=== PATIENT | female | born 1940 | race Caucasian/White ===

== ENCOUNTER → 2019-11-04 | Outpatient (CLI) | payer OTHER, BC | LOC: SJCVC 09:52 → SJCVCIMAG 09:52 | PROVIDERS: ATTEND Internal Medicine Cardiovascular Disease | DX: I65.23 Occlusion and stenosis of bilateral carotid arteries (principal); R94.31 Abnormal electrocardiogram [ECG] [EKG]; I10 Essential (primary) hypertension; E78.00 Pure hypercholesterolemia, unspecified; Z79.899 Other long term (current) drug therapy ==

== ENCOUNTER → 2019-11-24 | Outpatient (CLI) | payer OTHER, BC | LOC: SJCVCIMAG 07:48 | PROVIDERS: ATTEND Internal Medicine Cardiovascular Disease | DX: I08.8 Other rheumatic multiple valve diseases (principal); I11.9 Hypertensive heart disease without heart failure; I25.119 Atherosclerotic heart disease of native coronary artery with unspecified angina pectoris; Z79.899 Other long term (current) drug therapy ==

== ENCOUNTER → 2019-11-30 | Outpatient (CLI) | payer OTHER, BC ==
[~2019-11-30] MED LIST: ASA81BEC PO; B-COMPLEX PLU400 MCG PO; FOLIC ACID1 MG PO; HYDROCHLOROTHIA25 M2 PO; OMEPRAZOLE 20 M20 M1 PO; SIMVASTATIN80 MG PO; TOPROL XL50 MG PO; VITAMIN D32400 UNIT/ PO
== END | disposition home or self-care (01) ==
LOC: SJCVCIMAG 09:59
PROVIDERS: ATTEND Internal Medicine Cardiovascular Disease
DX: R07.9 Chest pain, unspecified (principal); I25.10 Atherosclerotic heart disease of native coronary artery without angina pectoris; I71.4 Abdominal aortic aneurysm, without rupture; I70.1 Atherosclerosis of renal artery; Z98.890 Other specified postprocedural states; Z79.899 Other long term (current) drug therapy; Z79.82 Long term (current) use of aspirin

== ENCOUNTER → 2019-11-30 | Outpatient (CLI) | payer OTHER, BC ==
[~2019-11-30] VITALS: Ht 160 cm; Wt 79.4 kg
[2019-11-30 06:59] VITALS: BP 136/76
[2019-11-30 07:33] LABS: HEMATOCRIT 41.7 % (37.0-47.0); HEMOGLOBIN 14.2 gm/dL (12.0-15.0); RBC 4.44 mil/uL (4.20-5.00); RDW 13.7 % (10.5-14.5); WBC 4.9 thou/uL (4.0-11.0)
[2019-11-30 07:40] LABS: CALCIUM 9.7 mg/dL (8.5-10.1); CREATININE 0.7 mg/dL (0.6-1.0); POTASSIUM 3.7 mmol/L (3.5-5.1)
--- NOTE | 2019-11-30 08:33 | EKG ---
[facility] [place] [address] ELECTROCARDIOGRAM REPORT Name: EFREN ELIAS Room #: REG [facility]#: [id number] Admission: 11/30/19 Attend Phys: Jigar Frances MD, Discharge: Date of : 36 Report #: [id number] THIS REPORT FOR: cc: Klaudia Rodriguez MD, Melissa MD Lundgren,Alexi Brannon MD [facility] ~ THIS REPORT FOR: //name// [facility] Test Date: 2019-11-30 Test Time: 07:48:56 Pat Name: EFREN ELIAS Department: Room: Gender: Manager Graphic: [facility] : 1940 Requested By: Jigar Frances Order Number: [id number] MD: Alexi Velásquez Measurements Intervals [place] Rate: 71 P: 21 NC: 210 QRS: -36 QRSD: 115 T: 137 QT: 382 QTc: 416 Interpretive Statements Sinus rhythm LVH with IVCD, LAD and secondary repol abnrm No previous ECG available for comparison Electronically Signed On 11-30-2019 8:33:22 CDT by Alexi Velásquez [email or web address] <ELECTRONICALLY SIGNED> By: Alexi Velásquez MD, FACC 11/30/19 0833 0748 0748 Alexi Velásquez MD, [facility] /EPI
--- NOTE | 2019-12-01 17:17 | CATHLAB ---
[facility] [address] [employer] [place] [address] INVASIVE PROCEDURE REPORT Name: EFREN ELIAS [id number] Admission: 11/30/19 Attend Phys: Jigar Frances MD, Discharge: Date of : 36 Report #: [id number] THIS REPORT FOR: cc: Klaudia Rodriguez MD, Melissa MD Mancuso, Gerald M. MD [facility] ~ APPROVED REPORT Study performed: 11/30/2019 07:43:23 Patient Details Patient Status: Out-Patient Room #: The patient is a 79 year-old female Event Personnel Jigar Frances Subsea Engineer, Mik Sheets RN, Iva Johnson RN RN, Lisa Delgado RTR Justice Rolon Sherra RTR Monitor Procedures Performed Art Access - R femoral artery* Left Heart Cath w/or w/o Coronaries [id number] [facility] Aortogram Abdominal Peripheral Angio 564038 Renal Bilateral Peripheral Angiography 9610122 CVRENALBIL 34375 Initial Mod Sed Same Phys/QHP Gr5y 586030 74991 Mod Sed Same Phys/QHP Ea 622391 Hemostasis with Manual pressure Indication Chest pain Procedure Narrative The Right Groin^ was infiltrated with 1% Lidocaine subcutaneous anesthesia. A PINNACLE 6FR Sheath #[id number] sheath was inserted into the RFA^. Coronary angiography was performed using coronary diagnostic catheters. The right coronary system was accessed and visualized with a 6FR 3DRC #[id number] catheter. The left coronary system was accessed and visualized with a JL4 catheter. The left ventricle was accessed and visualized with a PIGTAIL catheter. Left ventriculogram was performed in 30 degree projection. An aortogram of the abdominal aorta was performed. Pre-demployment femoral angiogram was performed . Closure device was deployed with a 6 Fr MYNXGRIP 6/7F #[id number]. The patient tolerated the procedure well and there were no complications associated with the procedure. There was no hematoma. [facility] [address] [place] [address] INVASIVE PROCEDURE REPORT Name: EFREN ELIAS Room #: [facility] [id number] Admission: 11/30/19 Attend Phys: Jigar Frances, Discharge: Date of : 36 Report #: [id number] Intraoperative Conscious Sedation Sedation start time: 840 Case end Time: 910 Fentanyl 50 mcg Versed 1 mg Fluoro Time: 5.50 minutes Dose: DAP 8250.80 cGycm2 1014 mGy Contrast Type and Amount: Omnipaque 135 ml Hemodynamics The aortic pressure is 133/61 mmHg with a mean of 28 mmHg. The left ventricular pressure is 137/3 mmHg with a mean of mmHg. The left ventricular end diastolic pressure is 17 mmHg. Conclusion #1. Left main long free of disease giving rise to LAD and circumflex #2 LAD with mild plaquing calcification eccentric proximal lesion 40 to 50% proximal mid and mid vessel. Smaller around the apex but patent #3 circumflex OM nondominant with mild distal disease. Moderate distribution moderate mid vessel calcification. #4 dominant right coronary with mild irregularities no occlusive disease #5 abdominal aortogram revealed small infrarenal aortic aneurysm will correlate with noninvasive studies. #6 selective injection bilateral renal arteries reveals mild ostial disease bilaterally 20 to 30% #7 normal left jugular size and systolic function EF 60% Recommendations and plan: Continue aggressive risk factor modification no indication for coronary intervention. Will obtain abdominal ultrasound to evaluate a small 8 infrarenal aortic aneurysm. <ELECTRONICALLY SIGNED> By: Jigar Frances MD, FACC 12/01/191716 16 16 Jigar Frances MD, FACC /INF
== END ==
LOC: CATH 06:42
PROVIDERS: ATTEND Internal Medicine Cardiovascular Disease
DX: R07.9 Chest pain, unspecified (principal); I10 Essential (primary) hypertension; E78.00 Pure hypercholesterolemia, unspecified; R09.89 Other specified symptoms and signs involving the circulatory and respiratory systems; Z79.899 Other long term (current) drug therapy; Z98.890 Other specified postprocedural states; Z79.82 Long term (current) use of aspirin; Z82.49 Family history of ischemic heart disease and other diseases of the circulatory system

== ENCOUNTER → 2020-09-06 | Outpatient (CLI) | payer OTHER, BC | LOC: SJCVC 14:48 | PROVIDERS: ATTEND Internal Medicine Cardiovascular Disease | DX: R94.31 Abnormal electrocardiogram [ECG] [EKG] (principal); I25.119 Atherosclerotic heart disease of native coronary artery with unspecified angina pectoris; I11.9 Hypertensive heart disease without heart failure; E78.00 Pure hypercholesterolemia, unspecified; I71.4 Abdominal aortic aneurysm, without rupture; I34.0 Nonrheumatic mitral (valve) insufficiency; E11.9 Type 2 diabetes mellitus without complications; I44.0 Atrioventricular block, first degree; E78.5 Hyperlipidemia, unspecified; Z98.890 Other specified postprocedural states; Z88.8 Allergy status to other drugs, medicaments and biological substances; Z79.84 Long term (current) use of oral hypoglycemic drugs; Z79.899 Other long term (current) drug therapy; Z85.828 Personal history of other malignant neoplasm of skin; Z82.49 Family history of ischemic heart disease and other diseases of the circulatory system ==